=== PATIENT | male | born 1995 | race Caucasian/White ===

== ENCOUNTER 2018-09-18 19:58 | Emergency (ER) | payer OTHER, BC ==
[2018-09-18 20:04] VITALS: BP 132/81; PULSE 98; TEMP 98.9; O2SAT 99
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
[2018-09-18 22:08] VITALS: RESP 20
--- NOTE | 2018-09-19 08:16 | CT ---
Date of service: 09/18/2018 PROCEDURE: CT HEAD WITHOUT CONTRAST. HISTORY: headache COMPARISON: None available. TECHNIQUE: Axial computed tomography images were obtained through the head/brain without intravenous contrast. Radiation dose: Total exam DLP = 1015.08 mGy-cm. This CT exam was performed using one or more of the following dose reduction techniques: Automated exposure control, adjustment of the mA and/or kV according to patient size, and/or use of iterative reconstruction technique. FINDINGS: HEMORRHAGE: No intracranial hemorrhage. BRAIN: No mass effect or edema. No atrophy or chronic microvascular ischemic changes. VENTRICLES: Unremarkable. No hydrocephalus. CALVARIUM: Unremarkable. PARANASAL SINUSES: Mild mucosal thickening of the bilateral maxillary sinuses. Moderate to severe mucosal thickening and opacification of the sphenoid sinus and ethmoid air cells. Frontal sinus is preserved. MASTOID AIR CELLS: Unremarkable as visualized. No inflammatory changes. OTHER FINDINGS: None. IMPRESSION: No acute intracranial abnormality. Sinus mucosal disease as above. If symptoms persists, consider correlation with MRI. A preliminary report was generated at 9:10 p.m. on 09/18/[address] Dimas Gupta from [employer]. Please note this case was placed in the PA review folder.
--- NOTE | 2018-09-19 10:15 | CT ---
CT cervical spine HISTORY: Neck pain. Comparison: None available. TECHNIQUE: Multiple contiguous axial images were performed through the cervical spine without the use of intravenous contrast. Subsequently, sagittal and coronal reformatted images were obtained. This CT exam was performed using one or more of the following dose reduction techniques: Automated exposure control, adjustment of the mA and/or kV according to patient size, and/or use of iterative reconstruction technique. Findings: Spinal alignment is maintained. Vertebral body heights are preserved. Mild sclerosis at the atlantodental interval. No evidence of acute displaced fracture or dislocation. If there is concern for disc pathology, consider correlation with MRI. Mucosal thickening of the visualized paranasal sinuses. Heterogeneity of the thyroid. Minimal apical pleural thickening at the lung apices. Impression: Negative acute. If pain persists, consider correlation with MRI.
== END 2018-09-18 22:07 | disposition home or self-care (01) ==
LOC: C.ER 19:58
DX: S09.90XA Unspecified injury of head, initial encounter (principal); V49.9XXA Car occupant (driver) (passenger) injured in unspecified traffic accident, initial encounter